=== PATIENT | male | born 1955 | race Hispanic/Latino ===

== ENCOUNTER 2022-04-10 14:25 | Emergency (ER) | payer OTHER ==
--- OUTSIDE RECORDS SUMMARY | 2022-04-10 14:28 | XMS REPORT | Continuity of Care Document ---
:1955 Author Organization [facility] t Address [facility] [place] [address] Care Team Providers Name Role Phone WOLF DREW Primary Care Physician Unavailable Wolf Drew Attending Clinician Unavailable WOLF DREW Attending Clinician Unavailable LAB90 Attending Clinician Unavailable ARBEN BAKER Attending Clinician Unavailable SAMRA SMALL Attending Clinician Unavailable Doctor Unassigned, [place] Attending Clinician Unavailable Payers Payer Name Policy Type Policy Number Effective Date Expiration Date S sergo [place] [place] O 7 [id number] 2021 00:00:00 Problems Condition Condition Condition Status Onset Resolution Last Treating Co mments Source Name Details Category Date Date Treatment Clinician Date Anxiety Anxiety Disease Active Ramya 1-13 Seybold 00:00: - 00 Externa l Seasonal Seasonal Disease Active 2021-03 Yodit y allergic allergic 0-11 Seybol d rhinitis rhinitis 00:00: - due to due to 00 Externa pollen pollen l Prediabete Prediabete Disease Active 2021-03 Overview : Ramya [place] 0-05 Formattin Seybold 00:00: g of this - 00 note Externa might be l different from the original. 01/07 A1c 5.9 Mixed Mixed Disease Active 2021-03 Ramya hyperlipid hyperlipid 0-05 Se ybold emia emia 00:00: - 00 Externa l Well adult Well adult Disease Active 2021-03 Penelope zaragoza exam exam 0-04 Seybold 00:00: - 00 Externa l Decreased Decreased Disease Active 2021-03 Yobani munoz urine urine 0-04 Seybold stream stream 00:00: - 00 Externa l No known No known Disease Unive rs active active ity of problems problems [facility] [id number] BPH loc w Problem Com mon urin [facility] obs/LUTS - [facility] [id number] PSA Problem Common elevation [facility] Allergies, Adverse Reactions, Alerts Allergy Allergy Status Severity Reaction(s) Onset Inactive Treating Comm ents Source Name Type Date Date Clinician NO KNOWN Drug Active Univers ALLERGIE Class ity of [facility] Social History Social Habit Start Date Stop Date Quantity Comments Source History of Tobacco Common [facility] - Use [facility] Sex Assigned At Common Sp javid - [facility] Alcohol intake 2022-03-31 2022-03-31 Lifetime Ramya Munoz bold - 00:00:00 00:00:00 non-drinker External (finding) Tobacco use and 2021-12-20 2021-12-20 Smokeless tobacco Ke chilo Seybold - exposure 00:00:00 00:00:00 non-user External Education 2021-12-20 2021-12-20 16 Ramyatammy Thomasold - 00:00:00 00:00:00 External Smoking Status Start Date Stop Date Source Unknown if ever smoked [facility] Never Smoker [facility] Medications Ordered Filled Start Stop Current Ordering Indication Dosage Frequency Signature Comments Components Source Medication Medication Date Date Medication? Clinician (SIG) Name Name Flomax 0.4 Flomax 0.4 2022- No 1{capsu QD Flomax 0.4 MG MG 04-06 08-17 le} MG 00:00: 00:00 00 :00 Methylpredn 2021-03- No [id number] 40mg K mila isolone 12-27 Seybold Sodium 15:15: 15:20 - (SOLU-MEDRO 00 :00 Externa L) 40 mg l Methylpredn 2021-03- No [id number] 40mg 40 mg, Ramya isolone 0-11 10-11 intramuscu Seybo ld Sodium 15:15: 15:20 lar, ONCE, - (SOLU-MEDRO 00 :00 On Tue [place] [employer] a L) 40 mg 12/27/21 l at 1015, For 1 dose Eidson-3 2021-03 Yes [id number] 1000mg Take 1 K elsey Fatty Acids 0-11 capsule Seybo ld (Fish Oil) 00:00: (1,000 mg - 1000 MG 00 total) by Externa oral mouth 2 l Capsule times daily Eidson-3 2021-03 Yes [id number] 1000mg Take 1 K elsey Fatty Acids 0-11 capsule Seybo ld (Fish Oil) 00:00: (1,000 mg - 1000 MG 00 total) by Externa oral mouth 2 l Capsule times daily No known 2021-03 No No known Kelse y medications 0-04 medication Se ybold 10:27: s - 29 Externa l isosorbide 2017-0 Yes 30mg Take 1 Unive rs mononitrate 3-29 tablet by ity of 30 mg 24 hr 00:00: mouth [place] tablet 00 daily. [facility] metoprolol Yes 25mg Take 1 Unive rs tartrate 25 3-29 tablet by ity of mg tablet 00:00: mouth 2 [place] 00 (two) Medical times Branch daily. Vital Signs Vital Name Observation Time Observation Value Comments Source temperature 2022-04-06 14:30:00 98.6 [degF] [facility] bmi 2022-04-06 14:30:00 29.1 kg/m2 [facility] oximetry 2022-04-06 14:30:00 98 % [facility] respiratory rate 2022-04-06 14:30:00 16 /min Comm on [facility] blood pressure 2022-04-06 14:30:00 139 mm[Hg] [facility] - systolic [facility] blood pressure 2022-04-06 14:30:00 68 mm[Hg] [facility] - diastolic [facility] height 2022-04-06 14:30:00 68 [in_i] [facility] weight 2022-04-06 14:30:00 191.4 [lb_av] Common [facility] Systolic blood 2022-03-31 14:13:00 138 mm[Hg] Ramya Seybold - pressure External Diastolic blood 2022-03-31 14:13:00 62 mm[Hg] Kelse y Seybold - pressure External Heart rate 2022-03-31 14:13:00 84 /min Ramya S eybold - External Body temperature 2022-03-31 14:13:00 36.28 Navya Sari ey Seybold - External Respiratory rate 2022-03-31 14:13:00 16 /min Sari ey Seybold - External Body height 2022-03-31 14:13:00 172.7 cm Ramya S eybold - External Body weight 2022-03-31 14:13:00 87.091 kg Ramya S eybold - External BMI 2022-03-31 14:13:00 29.19 kg/m2 Ramya S eybold - External Systolic blood 2021-12-27 14:46:00 112 mm[Hg] Ramya Seybold - pressure External Diastolic blood 2021-12-27 14:46:00 71 mm[Hg] Kelse y Seybold - pressure External Heart rate 2021-12-27 14:46:00 67 /min Ramya S eybold - External Body temperature 2021-12-27 14:46:00 36.56 Navya Sari ey Seybold - External Respiratory rate 2021-12-27 14:46:00 14 /min Sari ey Seybold - External Body height 2021-12-27 14:46:00 172.7 cm Ramya S eybold - External Body weight 2021-12-27 14:46:00 86.637 kg Ramya S eybold - External BMI 2021-12-27 14:46:00 29.04 kg/m2 Ramya S eybold - External Systolic blood 2021-12-20 15:23:00 115 mm[Hg] Ramya Seybold - pressure External Diastolic blood 2021-12-20 15:23:00 68 mm[Hg] Kelse y Seybold - pressure External Heart rate 2021-12-20 15:23:00 63 /min Ramya S eybold - External Body temperature 2021-12-20 15:23:00 36.67 Navya Sari Scott - External Respiratory rate 2021-12-20 15:23:00 14 /min Sari Scott - External Body height 2021-12-20 15:23:00 172.7 cm Ramya lin - External Body weight 2021-12-20 15:23:00 87 kg Ramya merlosbobabs - External BMI 2021-12-20 15:23:00 29.16 kg/m2 Ramya lin - External Oxygen saturation in 2021-12-20 15:23:00 99 /min Ramya Scott - Arterial blood by External Pulse oximetry Procedures Procedure Date / Time Performed Performing Clinician [facility] e REFERRAL- 2021-06-27 05:01:00 Doctor Unassigned, Rupali Garcia [facility] REQUEST/RESPONSE Name Medical Branch Encounters Start End Encounter Admission Attending Care Care Encounter Source Date/Time Date/Time Type Type Clinicians Facility Department ID 2022-04-[address] [id number] Common 14:11:02 Wolf [address]83[address] [facility] - [facility] 2023-01-29 2023-01-29 Outpatient RAMYA DREW [id number] Ramya 08:00:00 08:00:00 WOLF Guzmanybol karrie 2022-04-20 2022-04-20 Outpatient RAMYA DREW [id number] Ramya 14:45:00 14:45:00 WOLF Seybol d 2022-04-10 2022-04-10 Outpatient RAMYA DREW [id number] Ramya 00:00:00 00:00:00 WOLF Seybol d 2022-04-06 2022-04-06 [facility] [id number] mmon 00:00:00 00:00:00 VISIT NEW [facility] PT LEVEL 2 - [facility] 2022-04-04 2022-04-04 Outpatient RAMYA DREW [id number] Rmaya 00:00:00 00:00:00 WOLF Guzmanybol d 2022-03-31 2022-03-31 Outpatient LAB90 RAMYA SPARKS [id number] Ramya 08:35:00 08:35:00 Seybol d 2022-03-31 2022-03-31 Outpatient RAMYA DREW [id number] Ramya 08:00:00 08:00:00 WOLF Seybol d 2021-12-27 2021-12-27 Outpatient PRERAMYA BRANTLEY [id number] Ramya 09:45:00 09:45:00 WOLF Seybol d 2021-12-20 2021-12-20 Outpatient LAB90 RAMYA SPARKS [id number] Ramya 11:30:00 11:30:00 Seybol d 2021-12-20 2021-12-20 Outpatient RAMYA DREW [id number] Ramya 10:30:00 10:30:00 WOLF Seybol d 2021-12-19 2021-12-19 Outpatient BAKERRAMYA PENN [id number] Ramya 00:00:00 00:00:00 ARBEN Seybo ld 2021-12-13 2021-12-13 Outpatient RAMYA DREW [id number] Ramya 10:00:00 10:00:00 WOLF Seybol d 2021-09-08 2021-09-08 Outpatient Valeria [facility] [id number] Univers 14:30:00 14:30:00 [facility] 2021-06-27 2021-06-27 Orders Doctor FARRELL [id number] Univers 00:00:00 00:00:00 Only Unassigned, VICKY [id number] ity of [place] [facility] [id number] [place] as [phone] [address] Results Test Description Test Time Test Comments Results Result Comments Source CBC W/AUTO DIFF WITH PLATELETS 2021-06-29 02:41:03 Test Item Value Reference Range Interpretation Comme nts WBC (test code = 1001) 7.4 K/UL 3.5-11.0 RBC (test code = 1002) 4.63 M/UL 4.50-6.10 HEMOGLOBIN (test code = 13.5 G/DL 13.5-17.0 1003) HEMATOCRIT (test code = 40.1 % 40.0-51.0 1004) MCV (test code = 1005) 86.6 fL 80.0-99.0 MCH (test code = 1006) 29.2 PG 25.0-33.0 MCHC (test code = 1007) 33.7 G/DL 31.0-36.0 RDW (test code = 1038) 12.6 % 11.5-15.0 NEUTROPHILS (test code = 44.4 % 1008) LYMPHOCYTES (test code = 42.0 % 1010) MONOCYTES (test code = 1011) 8.5 % EOSINOPHILS (test code = 3.5 % 1012) BASOPHILS (test code = 1013) 1.3 % IMMATURE GRANULOCYTES (test 0.3 % code = 1036) NUCLEATED RBCS (test code = 0.0 /100 WBC'S See_Comment [Automated message] The 1065) system which ge nerated this result transmit joseline reference range: 0.0. The reference range was not u sed to interpret this result as normal/abnormal . PLATELET COUNT (test code = 252 K/UL 654-834 1768) ABSOLUTE NEUTROPHILS (test 3.29 K/UL 1.50-7.50 code = 1066) ABSOLUTE LYMPHOCYTES (test 3.11 K/UL 1.00-4.00 code = 1067) ABSOLUTE MONOCYTES (test 0.63 K/UL 0.20-1.00 code = 1068) ABSOLUTE EOSINOPHILS (test 0.26 K/UL 0.00-0.50 code = 1040) ABSOLUTE BASOPHILS (test 0.10 K/UL 0.00-0.20 code = 1069) ABS IMMATURE GRANULOCYTES 0.02 K/UL 0.00-0.10 (test code = 1020) ABS NUCLEATED RBCS (test 0.00 K/UL 0.00-0.11 U NLESS OTHERWISE code = 01346) INDICATED, ALL TESTING PERFORMED [facility] [address] [place] [id number] LABORATOR Y DIRECTOR: Richie IVYIA NUMBER [id number] CAP ACCREDITATION N O. [id number] HIV 1/2 4TH GEN, RFLX [id number] 06:06:18 Test Item Value Reference Range Interpretation Comments HIV 1/2 4TH GEN, RFLX CONF (test NON-REACTIVE NON-REACTIVE code = 3514) HEPATITIS PANEL, [id number] 06:06:18 Test Item Value Reference Range Interpretation Comments HEPATITIS A IgM (test NON-REACTIVE NON-REACTIVE code = 60485) HEPATITIS B CORE IgM NON-REACTIVE NON-REACTIVE (test code = 4644) HEPATITIS B SURF AG NON-REACTIVE NON-REACTIVE (test code = 2739) HEPATITIS C ANTIBODY NON-REACTIVE NON-REACTIVE (test code = 4675) INTERPRETATION (NOTE) Hepatitis A HEPATITIS A: (test code sero logy shows no = 2552) evidence of acu te hepatitis A. INTERPRETATION (NOTE) Hepatitis B HEPATITIS B: (test code sero logy shows no = 82565) evidence of acu te hepatitis B and no indication of exposure to hepatitis B vir us in the previous tao eight months. INTERPRETATION (NOTE) Hepatitis C HEPATITIS C: (test code sero logy shows no = 03291) evidence of exposure to hepatitisC viru s at this time. I t can take up to 12 months after exposure tothe hepatitis C vir us for antibodies to become detectab le in the blood in certain patient s. PSA, [id number] 06:05:56 Test Item Value Reference Range Interpretation Comments PSA, TOTAL 4.46 NG/ML See_Comment H NOTE: Methodol ogy is Nadine (test code = Danette Electroch emiluminescence 2606) Immunoassay tra ceable to WHO reference stand eloina 96/760. UNLESS OTHERWIS E INDICATED, ALL TESTING PERFORM ED ATCLINICAL PATHOLOGY [facility]. [address] [place] [address] LABORATORY DIRE CTOR: ANJEL RAMIREZ M.D. CLIA NUMBER [id number] [place]. [id number] [A utomated message] The sy stem which generated this result transmitted ref erence range: <=4.00. The ref erence range was not used to int erpret this result as amberly l/abnormal. COMPREHENSIVE METABOLIC [id number] 04:26:01 Test Item Value Reference Range Interpretation Comments GLUCOSE (test code = 104 MG/DL 70-99 H 2216) BUN (test code = 10 MG/DL 8-2207) CREATININE (test 0.88 MG/DL 0.80-1.40 code = 2214) eGFR (2020 CKD-EPI) 96 ML/MIN/1.73 >60 (test code = 97359) CALC BUN/CREAT (test 11 RATIO 6-28 code = 2235) SODIUM (test code = 140 MEQ/L 259-932 9049) POTASSIUM (test code 4.3 MEQ/L 3.5-5.4 = 2227) CHLORIDE (test code 103 MEQ/L 95-107 = 2214) CARBON DIOXIDE (test 25 MEQ/L 19-31 code = 220) CALCIUM (test code = 10.1 MG/DL 8.5-10.5 2208) PROTEIN, TOTAL (test 7.1 G/DL 6.1-8.3 code = 2228) ALBUMIN (test code = 4.7 G/DL 3.5-5.2 2200) CALC GLOBULIN (test 2.4 G/DL 1.9-3.7 code = 2239) CALC A/G RATIO (test 2.0 RATIO 1.0-2.6 code = 2233) BILIRUBIN, TOTAL 0.6 MG/DL See_Comment [Automated message] (test code = 2206) The syste [employer] which generated this result transmit joseline reference range : <=1.2. The refe rence range was not u sed to interpret th is result as normal/abnormal . ALKALINE PHOSPHATASE 87 U/L 40-123 (test code = 2203) AST (test code = 17 U/L 9-50 2217) ALT (test code = 23 U/L 5-50 2218) LIPID [id number] 04:26:01 Test Item Value Reference Range Interpretation Comments CHOLESTEROL (test 195 MG/DL <200 code = 2210) TRIGLYCERIDES (test 104 MG/DL <150 code = 2232) HDL CHOLESTEROL (test 50 MG/DL >39 code = 2220) CALC LDL CHOL (test 124 MG/DL <100 H NOTE: C ALCULATED LDL code = 2237) IS BASED ON CRISTOPHER-CONNOR METHOD WHICHINCLUDES ADJUSTABLE TRIGLYCERIDE:VL DL CHOLESTEROL RAT IO.THIS FACTOR VARIES B Y MEASURED TRIGLY CERIDE AND NON-HDLCHOL ESTEROL CONCENTRATIONS WITH INCREASED CALCU LATED LDL SEENIN HIGH ER TRIGLYCERIDE OR LOWER NON-HDL SPECIME NS. FOR MOREINFORMATION , SEE CLIENT ANNOUNCE MENT AT [email or web address] [email or web address] LDL/HDL 2.48 RATIO <3.55 (test code = 2238) CBC W/AUTO DIFF WITH [id number] 02:48:43 Test Item Value Reference Range Interpretation Comments WBC (test code = 12.3 K/UL 3.5-11.0 H 1001) RBC (test code = 4.74 M/UL 4.50-6.10 1002) HEMOGLOBIN (test code 14.4 G/DL 13.5-17.0 = 1003) HEMATOCRIT (test code 41.1 % 40.0-51.0 = 1004) MCV (test code = 86.7 fL 80.0-99.0 1005) MCH (test code = 30.4 PG 25.0-33.0 1006) MCHC (test code = 35.0 G/DL 31.0-36.0 1007) RDW (test code = 12.0 % 11.5-15.0 1038) NEUTROPHILS (test 72.3 % code = 1008) LYMPHOCYTES (test 16.8 % code = 1010) MONOCYTES (test code 8.4 % = 1011) EOSINOPHILS (test 1.6 % code = 1012) BASOPHILS (test code 0.6 % = 1013) IMMATURE GRANULOCYTES 0.3 % (test code = 1036) NUCLEATED RBCS (test 0.0 /100 WBC'S See_Comment [Aut omated code = 1065) message] The sy stem which generated this result transmitted reference range : 0.0. The refere nce range was not u sed to interpret th is result as normal/abnormal . PLATELET COUNT (test 263 K/UL 130-400 code = 1015) ABSOLUTE NEUTROPHILS 8.91 K/UL 1.50-7.50 H (test code = 1066) ABSOLUTE LYMPHOCYTES 2.07 K/UL 1.00-4.00 (test code = 1067) ABSOLUTE MONOCYTES 1.04 K/UL 0.20-1.00 H (test code = 1068) ABSOLUTE EOSINOPHILS 0.20 K/UL 0.00-0.50 (test code = 1040) ABSOLUTE BASOPHILS 0.08 K/UL 0.00-0.20 (test code = 1069) ABS IMMATURE 0.04 K/UL 0.00-0.10 GRANULOCYTES (test code = 1020) ABS NUCLEATED RBCS 0.00 K/UL 0.00-0.11 (test code = 57750)
[2022-04-10] MEDS ORDERED: ASPIRIN 81 MG CHEWABLE TABLET ONE (15:05)
[2022-04-10 15:19] LABS: Absolute Lymphocytes (CBC) 2.5 K/uL (0.7-4.9); Hematocrit 40.8 % (39.6-49.0); MCV 87.7 fL (80-100); MPV 8.9 fL (7.6-11.3); RBC Red Blood Cell Count 4.65 M/uL (4.33-5.43)
[2022-04-10 15:40] LABS: Troponin High Sensitivity 5.8 pg/mL (<58.9)
--- NOTE | 2022-04-10 15:59 | RAD REPORT ---
EXAM DESCRIPTION: RAD - Chest Single View - 04/10/2022 3:44 pm CLINICAL HISTORY: COUGH COMPARISON: None TECHNIQUE: AP portable chest image was obtained 04/10/2022 3:44 pm . FINDINGS: Lungs are clear of peripheral mass or consolidation. Interstitial pattern is mildly promin ent. This is probably baseline. Minimal interstitial edema or infiltrate cannot be entirely excluded on this baseline study. Heart and vasculature are normal. No measurable pleural effusion and no pneumothorax. No acute bony a bnormality seen. No acute aortic findings suspected. IMPRESSION: No acute cardiopulmonary process.
--- NOTE | 2022-04-10 16:46 | EDPHYS ---
Physician Documentation [facility] Name: Ty Renae Age: 66 yrs Sex: Male : 1955 Arrival Date: 04/10/2022 Time: 14:28 Bed 19 Private MD: Dayne Drew ED Physician Aki Escalona HPI: 04/10 14:36 This 66 yrs old Male presents to ER via Ambulatory with complaints of Chest ms3 Pain. 14:36 66-year-old male with no past medical history presents for chest pain that began ms3 Sunday. Patient states he is not currently having pain. Patient states he did have some pain last night. Patient denies nausea, vomiting, shortness of breath. Patient denies inciting or alleviating factors. Patient states he called his primary care physician's office, Dr. Drew, and was referred to the emergency department.. Historical: - Allergies: 14:34 No Known Allergies; ss - Immunization history:: Adult Immunizations up to date. - Social history:: Smoking status: Patient denies any tobacco usage or history of. ROS: 14:38 Constitutional: Negative for fever, and chills. ENT: Negative for injury, pain, and ms3 discharge, Neck: Negative for injury, pain, and swelling. 14:38 Respiratory: Negative for shortness of breath, cough, wheezing, and pleuritic chest pain, Abdomen/GI: Negative for abdominal pain, nausea, vomiting, diarrhea, and constipation, MS/Extremity: Negative for injury and deformity, Skin: Negative for injury, rash, and discoloration. 14:38 Cardiovascular: Positive for chest pain. 14:38 All other systems are negative. Exam: 14:38 Constitutional: This is a well developed, well nourished patient who is awake, alert, ms3 and in no acute distress. Head/Face: Normocephalic, atraumatic. Neck: Trachea midline, no cervical lymphadenopathy. Supple, full range of motion without nuchal rigidity, or vertebral point tenderness. No Meningismus. Chest/axilla: Normal chest wall appearance and motion. Nontender with no deformity. Cardiovascular: Regular rate and rhythm with a normal S1 and S2. No gallops, murmurs, or rubs. Normal PMI, no JVD. No pulse deficits. Respiratory: Lungs have equal breath sounds bilaterally, clear to auscultation and percussion. No rales, rhonchi or wheezes noted. No increased work of breathing, no retractions or nasal flaring. Abdomen/GI: Soft, non-tender, with normal bowel sounds. No distension or tympany. No guarding or rebound. No evidence of tenderness throughout. Skin: Warm, dry with normal turgor. Normal color with no rashes, no lesions, and no evidence of cellulitis. MS/ Extremity: Pulses equal, no cyanosis. Neurovascular intact. Full, normal range of motion. Psych: Awake, alert, with orientation to person, place and time. Behavior, mood, and affect are within normal limits. 15:19 ECG was reviewed by the Attending Physician. ms3 Vital Signs: 14:34 Pulse 71; Resp 16; Temp 16; Pulse Ox 100% ; ss 14:36 BP 151 / 78; Weight 88.45 kg; Height 5 ft. 8 in. (172.72 cm); iw 15:48 BP 132 / 73; Pulse 65; Resp 18; Pulse Ox 99% ; jh5 16:44 BP 130 / 67; Pulse 72; Resp 18; Temp 98.7(O); Pulse Ox 100% ; jh5 14:36 Body Mass Index 29.65 (88.45 kg, 172.72 cm) iw MDM: 14:36 Patient medically screened. ms3 14:38 Differential diagnosis: abnormal EKG, acute myocardial infarction, coronary artery ms3 disease chest wall pain, pneumonia. 16:45 HEART Score: History: Slightly Suspicious (0), ECG: Normal (0), Age: > or = 65 years ms3 (2), Risk Factors: No Risk Factors Known (0), Troponin: < or = 1 x Normal Limit (0), Total Score = 2. The patient was given aspirin in the Emergency Department. Data reviewed: vital signs, nurses notes, lab test result(s), EKG, radiologic studies, and as a result, I will discharge patient. Consideration of Admission/Observation No emergent medical condition necessitating admission found at this time. I considered the following discharge prescriptions or medication management in the emergency department Medications were administered in the Emergency Department. See MAR. 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 Counseling: I had a detailed discussion with the patient and/or guardian regarding: the historical points, exam findings, and any diagnostic results supporting the discharge/admit diagnosis, lab results, radiology results, the need for outpatient follow up, to return to the emergency department if symptoms worsen or persist or if there are any questions or concerns that arise at home. ED course: On reevaluation patient is alert and oriented x4, no apparent distress, nontoxic, ambulatory in emergency department, speaking full sentences. Patient to follow-up with his primary care physician in 2 to 3 days. Patient understands and agrees with plan. All questions were answered. Return precautions discussed include worsening symptoms, or any other concerns.. 04/10 14:59 Order name: Basic Metabolic Panel; Complete Time: 16:34 ms3 04/10 14:59 Order name: CBC with Diff; Complete Time: 16:34 3 04/10 14:59 Order name: Troponin HS; Complete Time: 16:34 ms3 04/10 14:59 Order name: XRAY Chest (1 view); Complete Time: 16:34 ms3 04/10 14:59 Order name: EKG; Complete Time: 14:59 ms3 04/10 14:59 Order name: Cardiac monitoring; Complete Time: 14:59 3 04/10 14:59 Order name: EKG - Nurse/Tech; Complete Time: 15:18 3 04/10 14:59 Order name: IV Saline Lock; Complete Time: 15:13 3 04/10 14:59 Order name: Labs collected and sent; Complete Time: 15:13 3 04/10 14:59 Order name: O2 Per Protocol; Complete Time: 14:59 ms3 04/10 14:59 Order name: O2 Sat Monitoring; Complete Time: 14:59 ms3 EC:19 Rate is 61 beats/min. Rhythm is regular. QRS [place] is Normal. OR interval is normal. QRS ms3 interval is normal. Clinical impression: Normal ECG. Interpreted by me. Reviewed by me. Administered Medications: 15:04 Drug: Aspirin Chewable Tablet 324 mg Route: PO; jh5 Disposition Summary: 04/10/22 16:45 Discharge Ordered Location: Home ms3 Condition: Stable ms3 Diagnosis - Chest pain, unspecified ms3 Followup: ms3 - With: Dayne Drew DO - When: 2 - 3 days - Reason: Recheck today's complaints Discharge Instructions: - Discharge Summary Sheet ms3 - Nonspecific Chest Pain, Adult ms3 Forms: - Medication Reconciliation Form ms3 - Thank You Letter ms3 - Antibiotic Education ms3 - Prescription Opioid Use ms3 Signatures: Dispatcher [employer] Livia Matthews RN RN ss Aki Escalona DO DO ms3 Yulisa Bond, RN RN jh5
--- NOTE | 2022-04-10 16:46 | ER ---
Nurse's Notes [facility] Name: Ty Renae Age: 66 yrs Sex: Male : 1955 Arrival Date: 04/10/2022 Time: 14:28 Bed 19 Private MD: Dayne Drew Diagnosis: Chest pain, unspecified Presentation: 04/10 14:34 Chief complaint: Patient states: Intermittent chest pain that began Sunday. ss Coronavirus screen: Client denies travel out of the [place] in the last 14 days. Ebola Screen: Patient denies exposure to infectious person. Patient denies travel to an Ebola-affected area in the 21 days before illness onset. Initial Sepsis Screen: Does the patient meet any 2 criteria? No. Patient's initial sepsis screen is negative. Does the patient have a suspected source of infection? No. Patient's initial sepsis screen is negative. Risk Assessment: Do you want to hurt yourself or someone else? Patient reports no desire to harm self or others. Onset of symptoms was April 07, 2021. 14:34 Method Of Arrival: Ambulatory 14:34 Acuity: JESSICA 3 Triage Assessment: 15:14 General: Appears in no apparent distress. slender, well groomed, well developed, [facility] Behavior is calm, cooperative, appropriate for age. Cardiovascular: Reports chest pain. Historical: - Allergies: 14:34 No Known Allergies; ss - Immunization history:: Adult Immunizations up to date. - Social history:: Smoking status: Patient denies any tobacco usage or history of. Screenin:14 [facility] ED Fall Risk Assessment (Adult) History of falling in the last 3 months, [facility] including since admission No falls in past 3 months (0 pts) Confusion or Disorientation No (0 pts) Intoxicated or Sedated No (0 pts) Impaired Gait No (0 pts) Mobility Assist Device Used No (0 pt) Altered Elimination No (0 pt) Score/Fall Risk Level 0 - 2 = Low Risk. Abuse screen: Denies threats or abuse. Denies injuries from another. Nutritional screening: No deficits noted. Tuberculosis screening: No symptoms or risk factors identified. Assessment: 15:15 Pain: Pain does not radiate. Pain began gradually. [facility] Vital Signs: 14:34 Pulse 71; Resp 16; Temp 16; Pulse Ox 100% ; ss 14:36 BP 151 / 78; Weight 88.45 kg; Height 5 ft. 8 in. (172.72 cm); iw 15:48 BP 132 / 73; Pulse 65; Resp 18; Pulse Ox 99% ; jh5 16:44 BP 130 / 67; Pulse 72; Resp 18; Temp 98.7(O); Pulse Ox 100% ; jh5 14:36 Body Mass Index 29.65 (88.45 kg, 172.72 cm) ED Course: 14:28 Patient arrived in ED. mr 14:28 Dayne Drew DO is Private Physician. mr 14:31 Aki Escalona DO is Attending Physician. ms3 14:34 Triage completed. ss 14:34 Arm band placed on right wrist. ss 15:14 Client placed on continuous cardiac and pulse oximetry monitoring. NIBP monitoring jh5 applied. 15:14 Inserted saline lock: 20 gauge in right antecubital area, using aseptic technique. jh5 Patient maintains SpO2 saturation greater than 95% on room air. 15:15 Patient has correct armband on for positive identification. Bed in low position. Call jh5 light in reach. Side rails up X 1. 15:15 No provider procedures requiring assistance completed. jh5 15:46 XRAY Chest (1 view) In Process Unspecified. EDMS 16:45 Dayne Drew DO is Referral Physician. ms3 16:58 IV discontinued, intact, bleeding controlled, No redness/swelling at site. Pressure jh5 dressing applied. Administered Medications: 15:04 Drug: Aspirin Chewable Tablet 324 mg Route: PO; 5 Medication: 15:15 VIS not applicable for this client. jh5 Outcome: 16:45 Discharge ordered by . ms3 16:58 Discharged to home ambulatory. jh5 16:58 Condition: good 16:58 Discharge instructions given to patient, Instructed on discharge instructions, follow up and referral plans. medication usage, safety practices, Demonstrated understanding of instructions, follow-up care, medications. 16:58 Patient left the ED. 5 Signatures: Dispatcher [employer] [facility] Gisselle Fernandez Henrietta Ramon RN RN Livia Carmona RN RN Aki Escalona DO DO ms3 Yulisa Bond RN RN 5
[2022-04-10 17:57] VITALS: BP 130/67; TEMP 98.7; O2SAT 100
--- NOTE | 2022-04-11 12:27 | EKG ---
Test Date: 2022-04-10 Test Time: 15:19:09 Nuclear Pharmacist: YASIR MEASUREMENT RESULTS: Intervals: Rate: 61 TX: 170 QRSD: 80 QT: 420 QTc: 422 [place]: P: 36 TX: 170 QRS: 2 T: 55 INTERPRETIVE STATEMENTS: Normal sinus rhythm Normal ECG No previous ECG available for comparison Electronically Signed On 04-11-22 12:25:06 PEDIATRIC ANESTHESIOLOGIST by aGutam Cardona
== END 2022-04-10 16:58 | disposition home or self-care (01) ==
LOC: ER 14:25
DX: R07.89 Other chest pain (principal)
CPT/HCPCS: 36415; 71045; 80048; 84484; 85025; 93005; 99284

== ENCOUNTER 2024-05-03 16:11 | Emergency (ER) | payer OTHER ==
--- OUTSIDE RECORDS SUMMARY | 2024-05-03 16:15 | XMS REPORT | Continuity of Care Document ---
Author Name Unknown Address [address] [place] [address] [facility] thconnect Address 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 [id number] 2021 00:00:00 Problems Condition Name Condition Details Condition Category Status Onset Date Resolution Date Last Treatment Date Treating Clinician Comments Source Overweight (BMI 25.0-29.9) Overweight (BMI 25.0-29.9) Disease Active 11-19 00:00: 00 Ramya Scott - Externa martin BPH (benign prostatic hyperplasi a) BPH (benign prostatic hyperplasi a) Disease Active 05-17 00:00: 00 Ramya Cisse Externa martin Chest pain, musculoske letal Chest pain, musculoske letal Disease Active 2-02 00:00: 00 Ramya Seybold - Externa l 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 01/07 A1c 5.9 Ramya Seybold - Externa l Mixed hyperlipid emia Mixed hyperlipid emia Disease Active 2021-03 0-05 00:00: 00 Ramya Seybold - Externa l Well adult exam Well adult exam Disease Active 2021-03 0-04 00:00: 00 Rmaya Seybold - Externa l Decreased urine stream Decreased urine stream Disease Active 2021-03 0-04 00:00: 00 Ramya Seybold - Externa l Cataract Cataract Disease Active Kelse y Seybold - Externa l Dry eye Dry eye Disease Active Ramya Seybold - Externa l Presbyopia of both eyes Presbyopia of both eyes Disease Active Ramya Seybold - Externa l No known active problems No known active problems Disease [facility] [id number] ED (erectile dysfunctio n) of organic origin Problem [facility] [id number] BPH loc w urin obs/LUTS Problem [facility] [id number] PSA elevation Problem [facility] Allergies, Adverse Reactions, Alerts Allergy Name Allergy Type Status Severity Reaction(s) Onset Date Inactive Date Treating Clinician Comments Source NO KNOWN ALLERGIE S Drug Class Active [facility] Social History Social Habit Start Date Stop Date Quantity Comments Source Gender identity Sari ey Seybold - External Sexual orientation K elsey Seybold - External History of Tobacco Use [facility] Sex Assigned At [facility] Alcoholic beverage intake 2023-11-20 00:00:00 2023-11-20 00:00:00 Lifetime non-drinker (finding) Ramya Williamkimberlyn - External Alcohol intake 2023-05-25 00:00:00 2023-05-25 00:00:00 Lifetime non-drinker (finding) Ramya Scott - External History of Social function 2022-12-04 00:00:00 2022-12-04 00:00:00 Ramya Scott - External Tobacco use and exposure 2021-12-20 00:00:00 2021-12-20 00:00:00 Smokeless tobacco non-user Ramya Scott - External Education 2021-12-20 00:00:00 2021-12-20 00:00:00 16 Ramya Scott - External Smoking Status Start Date Stop Date Source Unknown if ever smoked [facility] Never smoked tobacco Ramya Scott - External Medications Ordered Medication Name Filled Medication Name Start Date Stop Date Current Medication? Ordering Clinician Indication Dosage Frequency Signature (SIG) Comments Components Source POTASSIUM CITRATE OR 11-19 08:08: 43 Yes 1{tbl} Q.[id number] 3D Take 1 tablet by mouth 3 times daily. Ramya salazar Magnesium Citrate does not apply Powder 11-19 08:08: 02 Yes 1{appli cation} Q.[id number] 3D Take 1 Applicatio n by mouth 3 times daily. Ramya salazar Our[place]-3 Fatty Acids (Fish Oil) 1000 MG oral Capsule 05-17 00:00: 00 Yes [id number] 1000mg Q.5D Take 1 capsule (1,000 mg total) by mouth 2 times daily. Ramya salazar Tamsulosin HCl 0.4 MG oral Capsule 05-17 00:00: 00 11-19 00:00 :00 No [id number] .4mg Take 1 capsule (0.4 mg total) by mouth every night at bedtime. Ramya salazar Sildenafil Citrate (Viagra) 50 MG oral Tablet 05-17 00:00: 00 11-19 00:00 :00 No [id number] 50mg QD Take 1 tablet (50 mg total) by mouth daily as needed. Ramya salazar FLUTICASONE PROPIONATE, NASAL, 50 MCG/ACT nasal Suspension 2022-03 0-30 00:00: 00 05-17 00:00 :00 No [id number] 50ug Use 1 spray (50 mcg total) in each nostril daily. Ramya salazar Triamcinolo ne Acetonide (KENALOG) 40 mg/mL 2022-03 0 14:00: 00 01-12 13:57 :00 No [id number] 40mg Ramya salazar FLUTICASONE PROPIONATE, NASAL, 50 MCG/ACT nasal Suspension 2022-03 00:00: 00 Yes [id number] 50ug Use 1 spray (50 mcg total) in each nostril daily. Ramya salazar Tamsulosin HCl 0.4 MG oral Capsule 2022-03 0-13 00:00: 00 Yes Ramya salazar SILDENAFIL 50MG 9-19 00:00: 00 Yes Benitez Mcqueen Sildenafil Citrate (Viagra) 50 MG oral Tablet 8-21 00:00: 00 Yes [id number] 50mg QD Take 1 tablet (50 mg total) by mouth daily as needed. Ramya salazar TAKE 1 TABLET BY MOUTH DAILY NEEDED. 8-21 00:00: 00 Yes 50 Benitez Mcqueen SILDENAFIL 25MG 5-07 00:00: 00 Yes [id number] Benitez Mcqueen Tadalafil 20 MG Tadalafil 20 MG 3-16 00:00: 00 No Tadalafil 20 MG TAKE 1 CAPSULE BY MOUTH EVERY DAY FOR 90 DAYS 3-16 00:00: 00 Yes Benitez Mcqueen SILDENAFIL 25MG 2-03 00:00: 00 Yes Benitez Mcqueen Sildenafil Citrate (Viagra) 25 MG oral Tablet 2-02 00:00: 00 Yes [id number] 25mg QD Take 1 tablet (25 mg total) by mouth daily as needed for erectile dysfunctio n Ramya Seybold - Externa l TAKE 1 TABLET BY MOUTH DAILY NEEDED FOR ERECTILE DYSFUNCTION . 2 00:00: 00 Yes Benitez Mcqueen TAKE 1 CAPSULE BY MOUTH EVERY DAY 04-07 00:00: 00 Yes Benitez Mcqueen Flomax 0.4 MG Flomax 0.4 MG 04-06 00:00: 00 No 1{capsu le} QD Flomax 0.4 MG TAKE 1 CAPSULE BY MOUTH EVERY DAY 04-06 00:00: 00 Yes Benitez Mcqueen Flomax 0.4 MG Flomax 0.4 MG 04-06 00:00: 00 11-02 00:00 :00 No 1{capsu le} QD Flomax 0.4 MG Methylpredn isolone Sodium (SOLU-MEDRO L) 40 mg 2021-03 15:15: 00 12-27 15:20 :00 No [id number] 40mg Ramya Thomasold - Externa l [place]ay-3 Fatty Acids (Fish Oil) 1000 MG oral Capsule 2021-03 00:00: 00 Yes [id number] 1000mg Take 1 capsule (1,000 mg total) by mouth 2 times daily Ramya Seybold - Externa l No known medications 2021-03 004 10:27: 29 No No known medication s Ramya Seybold - Externa l Dose Unknown 06-13 00:00: 00 Yes Benitez Mcqueen Dose Unknown 06-13 00:00: 00 Yes Benitez Mcqueen Dose Unknown 06-13 00:00: 00 Yes Benitez Mcqueen Dose Unknown 06-27 00:00: 00 Yes Benitez Mcqueen Dose Unknown 06-27 00:00: 00 Yes Benitez Mcqueen Dose Unknown 06-27 00:00: 00 Yes Benitez Mcqueen isosorbide mononitrate 30 mg 24 hr tablet 06-14 00:00: 00 Yes 30mg Take 1 tablet by mouth daily. [facility] metoprolol tartrate 25 mg tablet 06-14 00:00: 00 Yes 25mg Take 1 tablet by mouth 2 (two) times daily. [facility] Immunizations Ordered Immunization Name Filled Immunization Name Date Status Comments Source Tdap Tdap 2021-06-13 00:00:00 Completed Benitez Mcqueen SHINGRIX VACCINE SHINGRIX VACCINE 2021-06-13 00:00:00 Completed Benitez Mcqueen Vital Signs Vital Name Observation Time Observation Value Comments Mello trotter Systolic blood pressure 2023-11-20 12:57:00 142 mm[Hg] Ramya Seybo ld - External Diastolic blood pressure 2023-11-20 12:57:00 74 mm[Hg] Ramya Seybo ld - External Heart rate 2023-11-20 12:57:00 66 /min Kelse y Seybold - External Body temperature 2023-11-20 12:57:00 35.89 Navya Ramya Seybold - External Respiratory rate 2023-11-20 12:57:00 15 /min Ramya Seybold - External Body height 2023-11-20 12:57:00 172.7 cm Sari ey Seybold - External Body weight 2023-11-20 12:57:00 86.183 kg Sari ey Seybold - External BMI 2023-11-20 12:57:00 28.89 kg/m2 Sari ey Seybold - External Systolic blood pressure 2023-05-18 16:13:00 130 mm[Hg] Ramya Seybo ld - External Diastolic blood pressure 2023-05-18 16:13:00 62 mm[Hg] Ramya Seybo ld - External Heart rate 2023-05-18 16:13:00 72 /min Kelse y Seybold - External Body temperature 2023-05-18 16:13:00 36.33 Navya Ramya Seybold - External Respiratory rate 2023-05-18 16:13:00 20 /min Ramya Seybold - External Body height 2023-05-18 16:13:00 172.7 cm Sari ey Seybold - External Body weight 2023-05-18 16:13:00 86.637 kg Sari ey Seybold - External BMI 2023-05-18 16:13:00 29.04 kg/m2 Sari ey Seybold - External Oxygen saturation in Arterial blood by Pulse oximetry 2023-05-18 16:13:00 100 /min Ramya Seybo ld - External Systolic blood pressure 2023-01-12 13:41:00 135 mm[Hg] Ramya Guzmanybo ld - External Diastolic blood pressure 2023-01-12 13:41:00 73 mm[Hg] Ramya Guzmanybo ld - External Body temperature 2023-01-12 13:41:00 37.06 Navya Ramya Guzmanybold - External Respiratory rate 2023-01-12 13:41:00 15 /min Ramya Seybold - External Body height 2023-01-12 13:41:00 172.7 cm Sari ey Seybold - External Body weight 2023-01-12 13:41:00 86.183 kg Sari ey Seybold - External BMI 2023-01-12 13:41:00 28.89 kg/m2 Sari ey Seybold - External Oxygen saturation in Arterial blood by Pulse oximetry 2023-01-12 13:41:00 99 /min Ramya Guzmanybo ld - External Systolic blood pressure 2022-11-06 15:26:00 133 mm[Hg] Ramya Guzmanybo ld - External Diastolic blood pressure 2022-11-06 15:26:00 82 mm[Hg] Ramya Guzmanybo ld - External Heart rate 2022-11-06 15:26:00 65 /min Yodit Thomasold - External Body temperature 2022-11-06 15:26:00 36.61 Navya Ramya Guzmanybold - External Respiratory rate 2022-11-06 15:26:00 15 /min Ramya Guzmanybold - External Body height 2022-11-06 15:26:00 172.7 cm Sari ey Seybold - External Body weight 2022-11-06 15:26:00 89.812 kg Sari ey Seybold - External BMI 2022-11-06 15:26:00 30.11 kg/m2 Sari ey Seybold - External Oxygen saturation in Arterial blood by Pulse oximetry 2022-11-06 15:26:00 99 /min Ramya Thomaso ld - External height 2022-06-01 14:15:00 68 [in_i] [facility]mo [facility] weight 2022-06-01 14:15:00 191.8 [lb_av] Co mmon [facility] temperature 2022-06-01 14:15:00 98.3 [degF] Com mon [facility] bmi 2022-06-01 14:15:00 29.16 kg/m2 Comm on [facility] oximetry 2022-06-01 14:15:00 98 % Commo n [facility] respiratory rate 2022-06-01 14:15:00 18 /min Common [facility] blood pressure systolic 2022-06-01 14:15:00 137 mm[Hg] Common [facility] blood pressure diastolic 2022-06-01 14:15:00 77 mm[Hg] [facility] Systolic blood pressure 2022-04-20 20:30:00 132 mm[Hg] Ramya Seybo ld - External Diastolic blood pressure 2022-04-20 20:30:00 71 mm[Hg] Ramya Seybo ld - External Heart rate 2022-04-20 20:30:00 69 /min Kelse y Seybold - External Body temperature 2022-04-20 20:30:00 36.61 Navya Ramya Seybold - External Respiratory rate 2022-04-20 20:30:00 14 /min Ramya Guzmanybold - External Body height 2022-04-20 20:30:00 172.7 cm Sari ey Seybold - External Body weight 2022-04-20 20:30:00 88.905 kg Sari ey Seybold - External BMI 2022-04-20 20:30:00 29.80 kg/m2 Sari ey Seybold - External Oxygen saturation in Arterial blood by Pulse oximetry 2022-04-20 20:30:00 99 /min Ramya Seybo ld - External height 2022-04-06 14:30:00 68 [in_i] Commo n [facility] weight 2022-04-06 14:30:00 191.4 [lb_av] Co mmon [facility] temperature 2022-04-06 14:30:00 98.6 [degF] Com mon [facility] bmi 2022-04-06 14:30:00 29.1 kg/m2 Commo n [facility] oximetry 2022-04-06 14:30:00 98 % Commo n [facility] respiratory rate 2022-04-06 14:30:00 16 /min Common [facility] blood pressure systolic 2022-04-06 14:30:00 139 mm[Hg] [facility] blood pressure diastolic 2022-04-06 14:30:00 68 mm[Hg] [facility] Systolic blood pressure 2022-03-31 14:13:00 138 mm[Hg] Ramya Seybo ld - External Diastolic blood pressure 2022-03-31 14:13:00 62 mm[Hg] Armya Seybo ld - External Heart rate 2022-03-31 14:13:00 84 /min Kelse y Seybold - External Body temperature 2022-03-31 14:13:00 36.28 Navya Ramya Seybold - External Respiratory rate 2022-03-31 14:13:00 16 /min Ramya Seybold - External Body height 2022-03-31 14:13:00 172.7 cm Sari ey Seybold - External Body weight 2022-03-31 14:13:00 87.091 kg Sari ey Seybold - External BMI 2022-03-31 14:13:00 29.19 kg/m2 Sari ey Seybold - External Systolic blood pressure 2021-12-27 14:46:00 112 mm[Hg] Ramya Seybo ld - External Diastolic blood pressure 2021-12-27 14:46:00 71 mm[Hg] Ramya Seybo ld - External Heart rate 2021-12-27 14:46:00 67 /min Kelse y Seybold - External Body temperature 2021-12-27 14:46:00 36.56 Navya Ramya Seybold - External Respiratory rate 2021-12-27 14:46:00 14 /min Ramya Seybold - External Body height 2021-12-27 14:46:00 172.7 cm Sari ey Seybold - External Body weight 2021-12-27 14:46:00 86.637 kg Sari ey Seybold - External BMI 2021-12-27 14:46:00 29.04 kg/m2 Sari merlos Seybold - External Systolic blood pressure 2021-12-20 15:23:00 115 mm[Hg] Ramya Seybo ld - External Diastolic blood pressure 2021-12-20 15:23:00 68 mm[Hg] Ramya Guzmanybo ld - External Heart rate 2021-12-20 15:23:00 63 /min Yodit y Seybold - External Body temperature 2021-12-20 15:23:00 36.67 Navya Ramya Guzmanybold - External Respiratory rate 2021-12-20 15:23:00 14 /min Ramya Guzmanybold - External Body height 2021-12-20 15:23:00 172.7 cm Sari merlos Seybold - External Body weight 2021-12-20 15:23:00 87 kg Sari merlos Seybold - External BMI 2021-12-20 15:23:00 29.16 kg/m2 Sari merlos Seybold - External Oxygen saturation in Arterial blood by Pulse oximetry 2021-12-20 15:23:00 99 /min Ramya Thomaso ld - External BP Systolic 2023 15:09:00 146 mm[Hg] Step hen F Richar BP Diastolic 2023 15:09:00 81 mm[Hg] Fredi phen F Richar Weight Measured 2023 15:09:00 193.80 pounds Benitez F Richar Height Measured 2023 15:09:00 68.00 inches Benitez F Richar Body Temperature 2023 15:09:00 98.30 degrees Benitez F Richar Heart Rate 2023 15:09:00 71.00 /min Saida en F Richar Respiratory Rate 2023 15:09:00 19.00 /min Benitez F Richar BP Systolic 2021-06-13 15:46:00 151 mm[Hg] Step hen F Richar BP Diastolic 2021-06-13 15:46:00 80 mm[Hg] Fredi phen F Richar Weight Measured 2021-06-13 15:46:00 199.00 pounds Benitez F Richar Height Measured 2021-06-13 15:46:00 68.00 inches Benitez Mcqueen Body Temperature 2021-06-13 15:46:00 97.90 degrees Benitez Mcqueen Heart Rate 2021-06-13 15:46:00 91.00 /min Saida Mcqueen Respiratory Rate 2021-06-13 15:46:00 16.00 /min Benitez Mcqueen Procedures Procedure Date / Time Performed Performing Clinicia n Source [facility] 2023-11-20 08:22:49 Wolf Drew - External REFERRAL- REQUEST/RESPONSE 2021-06-27 05:01:00 Doctor Unassigned, [place] [facility] Encounters Start Date/Time End Date/Time Encounter Type Admission Type Attending [facility] Care Facility Care Department Encounter ID Source 2022-04-06 14:11:02 Outpatient Wolf Drew [facility] [id number] [facility] 2024-07-18 08:00:00 2024-07-18 08:00:00 Outpatient WOLF DREW [id number] Ramya Scott 2023 15:04:42 2023 15:04:42 Outpatient SFA SFA [id number] Benitez Mcqueen 2023 00:00:00 2023 00:00:00 Outpatient Visit SFA [id number] Benitez Ferguson Richar 2023-11-20 09:00:00 2023-11-20 09:00:00 Outpatient LAB90 RAMYA SPARKS [id number] Ramya Scott 2023-11-20 08:00:00 2023-11-20 08:00:00 Outpatient WOLF DREW [id number] Ramya Scott 2023-05-25 08:00:00 2023-05-25 08:00:00 Outpatient GÓMEZ YEUNG [id number] Ramya Scott 2023-05-21 08:25:00 2023-05-21 08:25:00 Outpatient LAB90 RAMYA SPARKS [id number] Ramya Scott 2023-05-18 10:30:00 2023-05-18 10:30:00 Outpatient PREZAS, WOLF SPARKS RAMYA [id number] Ramya Guzmankimberlyn 2023-05-09 08:00:00 2023-05-09 08:00:00 Outpatient PREZAS, WOLF SPARKS RAMYA [id number] Ramya Scott 2023-01-31 00:00:00 2023-01-31 00:00:00 Outpatient PREZAS, WOLF SPARKS [id number] Ramya Guzmankimberlyn 2023-01-29 08:00:00 2023-01-29 08:00:00 Outpatient PREZAS, WOLF SPARKS RAMYA [id number] Ramya Guzmankimberlyn 2023-01-12 08:45:00 2023-01-12 08:45:00 Outpatient PREZAS, WOLF SPARKS RAM[facility] [id number] [facility] 2023-01-09 16:00:00 2023-01-09 16:00:00 Outpatient PREZAS, WOLF SPARKS RAMYA [id number] [facility] 2022-11-07 00:00:00 2022-11-07 00:00:00 Outpatient PREZAS, WOLF SPARKS RAMYA [id number] Ramya [facility] 2022-11-06 11:15:00 2022-11-06 11:15:00 Outpatient ELVIE SPARKS RAMYA [id number] [facility] 2022-11-06 10:30:00 2022-11-06 10:30:00 Outpatient PREZAS, WOLF SPARKS RAMYA [id number] Ramya [facility] 2022-10-19 14:30:00 2022-10-19 14:30:00 Outpatient PREZAS, WOLF RAMYA SPAKRS [id number] Ramya [facility] 2022-10-12 10:45:00 2022-10-12 10:45:00 Outpatient PREZAS, WOLF RAMYA SPARKS [id number] [facility] 2022-06-01 00:00:00 2022-06-01 00:00:00 [id number] 2022-05-30 00:00:00 2022-05-30 00:00:00 Outpatient PREZAS, WOLF SPARKS RAMYA [id number] [facility] 2022-04-20 14:45:00 2022-04-20 14:45:00 Outpatient PREZASWOLF RAMYA [id number] [facility] 2022-04-11 00:00:00 2022-04-11 00:00:00 Outpatient PREZAS, WOLF RAMYA SPARKS [id number] [facility] 2022-04-10 00:00:00 2022-04-10 00:00:00 Outpatient PREZAS, WOLF RAMYA SPARKS [id number] Ramya [facility] 2022-04-06 00:00:00 2022-04-06 00:00:00 OFFICE VISIT NEW PT LEVEL 2 STLMLC STLMLC [id number] [facility] 2022-04-04 00:00:00 2022-04-04 00:00:00 Outpatient PREZASWOLF RAMYA RAMYA [id number] [facility] 2022-03-31 08:35:00 2022-03-31 08:35:00 Outpatient LAB90 RAMYA SPARKS [id number] Ramya [facility] 2022-03-31 08:00:00 2022-03-31 08:00:00 Outpatient PREZASWOFL RAMYA SPARKS [id number] Ramya [facility] 2021-12-27 09:45:00 2021-12-27 09:45:00 Outpatient PREZASWOLF RAMYA SPARKS [id number] Ram[facility] 2021-12-20 11:30:00 2021-12-20 11:30:00 Outpatient LAB90 RAMYA SPARKS [id number] Ramya [facility] 2021-12-20 10:30:00 2021-12-20 10:30:00 Outpatient PREZAS, WOLF RAMYA SPARKS [id number] Ramya [facility] 2021-12-19 00:00:00 2021-12-19 00:00:00 Outpatient ARBEN BAKER [id number] Ramya Scott 2021-12-13 10:00:00 2021-12-13 10:00:00 Outpatient WOLF DREW [id number] Ramya Scott 2021-09-08 14:30:00 2021-09-08 14:30:00 Outpatient SAMRA KENT [facility] [id number] [facility] 2021-06-27 00:00:00 2021-06-27 00:00:00 Orders Only Doctor Unassigned, [place] [facility] [id number] [facility] Results Test Description Test Time Test Comments Results Result Co mments Source Ramya Scott - [facility] W/AUTO DIFF WITH [id number] 02:41:03* Test Item Value Reference Range Interpretation Comme nts WBC (test code = 1001) 7.4 K/UL 3.5-11.0 RBC (test code = 1002) 4.63 M/UL 4.50-6.10 HEMOGLOBIN (test code = 1003) 13.5 G/DL 13.5-17.0 HEMATOCRIT (test code = 1004) 40.1 % 40.0-51.0 MCV (test code = 1005) 86.6 fL 80.0-99.0 MCH (test code = 1006) 29.2 PG 25.0-33.0 MCHC (test code = 1007) 33.7 G/DL 31.0-36.0 RDW (test code = 1038) 12.6 % 11.5-15.0 NEUTROPHILS (test code = 1008) 44.4 % LYMPHOCYTES (test code = 1010) 42.0 % MONOCYTES (test code = 1011) 8.5 % EOSINOPHILS (test code = 1012) 3.5 % BASOPHILS (test code = 1013) 1.3 % IMMATURE GRANULOCYTES (test code = 1036) 0.3 % NUCLEATED RBCS (test code = 1065) 0.0 /100 WBC'S See_Comment [Automated message] The system which generated this result transmitted reference range: 0.0. The reference range was not used to interpret this result as normal/abnormal. PLATELET COUNT (test code = 1015) 252 K/UL 130-400 ABSOLUTE NEUTROPHILS (test code = 1066) 3.29 K/UL 1.50-7.50 ABSOLUTE LYMPHOCYTES (test code = 1067) 3.11 K/UL 1.00-4.00 ABSOLUTE MONOCYTES (test code = 1068) 0.63 K/UL 0.20-1.00 ABSOLUTE EOSINOPHILS (test code = 1040) 0.26 K/UL 0.00-0.50 ABSOLUTE BASOPHILS (test code = 1069) 0.10 K/UL 0.00-0.20 ABS IMMATURE GRANULOCYTES (test code = 1020) 0.02 K/UL 0.00-0.10 ABS NUCLEATED RBCS (test code = 99146) 0.00 K/UL 0.00-0.11 UNLESS OTHER HU INDICATED, ALL TESTING PERFORMED [facility] [employer] [address] [place] [id number] [employer]: ANJEL RAMIREZ M.D. CLIA NUMBER [id number] [facility] [place]. [id number] CBC W/AUTO [id number] 00:00:00* Test Item Value Reference Range Interpretation Comme nts WBC (test code = 1001) 7.4 K/UL RBC (test code = 1002) 4.63 M/UL HEMOGLOBIN (test code = 1003) 13.5 G/DL HEMATOCRIT (test code = 1004) 40.1 % MCV (test code = 1005) 86.6 fL MCH (test code = 1006) 29.2 PG MCHC (test code = 1007) 33.7 G/DL RDW (test code = 1038) 12.6 % NEUTROPHILS (test code = 1008) 44.4 % LYMPHOCYTES (test code = 1010) 42.0 % MONOCYTES (test code = 1011) 8.5 % EOSINOPHILS (test code = 1012) 3.5 % BASOPHILS (test code = 1013) 1.3 % IMMATURE GRANULOCYTES (test code = 1036) 0.3 % NUCLEATED RBCS (test code = 1065) 0.0 /100WBC'S PLATELET COUNT (test code = 1015) 252 K/UL ABSOLUTE NEUTROPHILS (test c ode = 1066) 3.29 K/UL ABSOLUTE LYMPHOCYTES (test c ode = 1067) 3.11 K/UL ABSOLUTE MONOCYTES (test cod e = 1068) 0.63 K/UL ABSOLUTE EOSINOPHILS (test c ode = 1040) 0.26 K/UL ABSOLUTE BASOPHILS (test cod e = 1069) 0.10 K/UL ABS IMMATURE GRANULOCYTES (t est code = 1020) 0.02 K/UL ABS NUCLEATED RBCS (test cod e = 11563) 0.00 K/UL Benitez McqueenHIV 1/2 4TH GEN, RFLX [id number] 06:06:18* Test Item Value Reference Range Interpretation Comme nts HIV 1/2 4TH GEN, RFLX CONF ( test code = 3514) NON-REACTIVE NON-REACTIVE HEPATITIS PANEL, [id number] 06:06:18* Test Item Value Reference Range Interpretation Comme [facility] HEPATITIS A IgM (test code = 08746) NON-REACTIVE NON-REACTIVE HEPATITIS B CORE IgM (test code = 4644) NON-REACTIVE NON-REACTIVE HEPATITIS B SURF AG (test code = 2739) NON-REACTIVE NON-REACTIVE HEPATITIS C ANTIBODY (test code = 4675) NON-REACTIVE NON-REACTIVE INTERPRETATION HEPATITIS A: (test code = 2552) (NOTE) Hepatitis A serology shows no evidence of acute hepatitis A. INTERPRETATION HEPATITIS B: (test code = 58827) (NOTE) Hepatitis B serology shows no evidence of acute hepatitis B andno indication of exposure to hepatitis B virus in the previous tao eight months. INTERPRETATION HEPATITIS C: (test code = 29720) (NOTE) Hepatitis C serology shows no evidence of exposure to hepatitisC virus at this time. It can take up to 12 months after exposure tothe hepatitis C virus for antibodies to become detectable in the blood in certain patients. PSA, [id number] 06:05:56* Test Item Value Reference Range Interpretation Comme [facility] PSA, TOTAL (test code = 2606) 4.46 NG/ML See_Comment H NOTE: Methodolog y is Nadine Danette Electrochemiluminescence Immunoassay traceable to WHO reference standard 96/760. UNLESS OTHERWISE INDICATED, ALL TESTING PERFORMED [facility] [employer] [address] [place] [id number] [employer] AMBASSADOR: ANJEL RAMIREZ M.D. CLIA NUMBER [id number] [place]. [id number] [Automated message] The system which generated this result transmitted reference range: <=4.00. The reference range was not used to interpret this result as normal/abnormal. COMPREHENSIVE METABOLIC [id number] 04:26:01* Test Item Value Reference Range Interpretation Comme nts GLUCOSE (test code = 2216) 104 MG/DL 70-99 H BUN (test code = 2207) 10 MG/DL 8-23 CREATININE (test code = 2213) 0.88 MG/DL 0.80-1.40 eGFR (2020 CKD-EPI) (test code = ) 96 ML/MIN/1.73 >60 CALC BUN/CREAT (test code = 2234) 11 RATIO 6-28 SODIUM (test code = 2230) 140 MEQ/L 133-146 POTASSIUM (test code = 2227) 4.3 MEQ/L 3.5-5.4 CHLORIDE (test code = 2214) 103 MEQ/L 95-107 CARBON DIOXIDE (test code = 2205) 25 MEQ/L 19-31 CALCIUM (test code = 2208) 10.1 MG/DL 8.5-10.5 PROTEIN, TOTAL (test code = 2228) 7.1 G/DL 6.1-8.3 ALBUMIN (test code = 2200) 4.7 G/DL 3.5-5.2 CALC GLOBULIN (test code = 0) 2.4 G/DL 1.9-3.7 CALC A/G RATIO (test code = 2233) 2.0 RATIO 1.0-2.6 BILIRUBIN, TOTAL (test code = 2206) 0.6 MG/DL See_Comment [Automated me ssage] The system which generated this result transmitted reference range: <=1.2. The reference range was not used to interpret this result as normal/abnormal. ALKALINE PHOSPHATASE (test code = 2203) 87 U/L 40-123 AST (test code = 2217) 17 U/L 9-50 ALT (test code = 9) 23 U/L 5-50 LIPID [id number] 04:26:01* Test Item Value Reference Range Interpretation Comme nts CHOLESTEROL (test code = 0) 195 MG/DL <200 TRIGLYCERIDES (test code = 2232) 104 MG/DL <150 HDL CHOLESTEROL (test code = 2219) 50 MG/DL >39 CALC LDL CHOL (test code = 2236) 124 MG/DL <100 H NOTE: CALCULATED LDL IS BASED ON CRISTOPHER-CONNOR METHOD WHICHINCLUDES ADJUSTABLE TRIGLYCERIDE:VLDL CHOLESTEROL RATIO.THIS FACTOR VARIES BY MEASURED TRIGLYCERIDE AND NON-HDLCHOLESTEROL CONCENTRATIONS WITH INCREASED CALCULATED LDL SEENIN HIGHER TRIGLYCERIDE OR LOWER NON-HDL SPECIMENS. FOR MOREINFORMATION, SEE CLIENT ANNOUNCEMENT AT [email or web address] [email or web address] RATIO LDL/HDL (test code = 2238) 2.48 RATIO <3.55 CBC W/AUTO DIFF WITH [id number] 02:48:43* Test Item Value Reference Range Interpretation Comme nts WBC (test code = 1001) 12.3 K/UL 3.5-11.0 H RBC (test code = 1002) 4.74 M/UL 4.50-6.10 HEMOGLOBIN (test code = 1003) 14.4 G/DL 13.5-17.0 HEMATOCRIT (test code = 1004) 41.1 % 40.0-51.0 MCV (test code = 1005) 86.7 fL 80.0-99.0 MCH (test code = 1006) 30.4 PG 25.0-33.0 MCHC (test code = 1007) 35.0 G/DL 31.0-36.0 RDW (test code = 1038) 12.0 % 11.5-15.0 NEUTROPHILS (test code = 1008) 72.3 % LYMPHOCYTES (test code = 1010) 16.8 % MONOCYTES (test code = 1011) 8.4 % EOSINOPHILS (test code = 1012) 1.6 % BASOPHILS (test code = 1013) 0.6 % IMMATURE GRANULOCYTES (test code = 1036) 0.3 % NUCLEATED RBCS (test code = 1065) 0.0 /100 WBC'S See_Comment [Automated messa ge] The system which generated this result transmitted reference range: 0.0. The reference range was not used to interpret this result as normal/abnormal. PLATELET COUNT (test code = 1015) 263 K/UL 130-400 ABSOLUTE NEUTROPHILS (test code = 1066) 8.91 K/UL 1.50-7.50 H ABSOLUTE LYMPHOCYTES (test code = 1067) 2.07 K/UL 1.00-4.00 ABSOLUTE MONOCYTES (test code = 1068) 1.04 K/UL 0.20-1.00 H ABSOLUTE EOSINOPHILS (test code = 1040) 0.20 K/UL 0.00-0.50 ABSOLUTE BASOPHILS (test code = 1069) 0.08 K/UL 0.00-0.20 ABS IMMATURE GRANULOCYTES (test code = 1020) 0.04 K/UL 0.00-0.10 ABS NUCLEATED RBCS (test code = 34238) 0.00 K/UL 0.00-0.11 CBC W/AUTO [id number] 00:00:00* Test Item Value Reference Range Interpretation Comme nts WBC (test code = 1001) 12.3 K/UL RBC (test code = 1002) 4.74 M/UL HEMOGLOBIN (test code = 1003) 14.4 G/DL HEMATOCRIT (test code = 1004) 41.1 % MCV (test code = 1005) 86.7 fL MCH (test code = 1006) 30.4 PG MCHC (test code = 1007) 35.0 G/DL RDW (test code = 1038) 12.0 % NEUTROPHILS (test code = 1008) 72.3 % LYMPHOCYTES (test code = 1010) 16.8 % MONOCYTES (test code = 1011) 8.4 % EOSINOPHILS (test code = 1012) 1.6 % BASOPHILS (test code = 1013) 0.6 % IMMATURE GRANULOCYTES (test code = 1036) 0.3 % NUCLEATED RBCS (test code = 1065) 0.0 /100WBC'S PLATELET COUNT (test code = 1015) 263 K/UL ABSOLUTE NEUTROPHILS (test c ode = 1066) 8.91 K/UL ABSOLUTE LYMPHOCYTES (test c ode = 1067) 2.07 K/UL ABSOLUTE MONOCYTES (test cod e = 1068) 1.04 K/UL ABSOLUTE EOSINOPHILS (test c ode = 1040) 0.20 K/UL ABSOLUTE BASOPHILS (test cod e = 1069) 0.08 K/UL ABS IMMATURE GRANULOCYTES (t est code = 1020) 0.04 K/UL ABS NUCLEATED RBCS (test cod e = 52249) 0.00 K/UL Benitez Marty RicharCOMPREHENSIVE METABOLIC [id number] 00:00:00* Test Item Value Reference Range Interpretation Comme nts GLUCOSE (test code = 2217) 104 MG/DL BUN (test code = 2208) 10 MG/DL CREATININE (test code = 2214) 0.88 MG/DL eGFR (2020 CKD-EPI) (test co de = 73502) 96 ML/MIN/1.73 CALC BUN/CREAT (test code = 2235) 11 RATIO SODIUM (test code = 2231) 140 MEQ/L POTASSIUM (test code = 2228) 4.3 MEQ/L CHLORIDE (test code = 2215) 103 MEQ/L CARBON DIOXIDE (test code = 2206) 25 MEQ/L CALCIUM (test code = 2209) 10.1 MG/DL PROTEIN, TOTAL (test code = 2229) 7.1 G/DL ALBUMIN (test code = 2201) 4.7 G/DL CALC GLOBULIN (test code = 2240) 2.4 G/DL CALC A/G RATIO (test code = 2234) 2.0 RATIO BILIRUBIN, TOTAL (test code = 2207) 0.6 MG/DL ALKALINE PHOSPHATASE (test code = 2204) 87 U/L AST (test code = 2218) 17 U/L ALT (test code = 2219) 23 U/L Benitez McqueenLIPID [id number] 00:00:00* Test Item Value Reference Range Interpretation Comme nts CHOLESTEROL (test code = 2210) 195 MG/DL TRIGLYCERIDES (test code = 2232) 104 MG/DL HDL CHOLESTEROL (test code = 2220) 50 MG/DL CALC LDL CHOL (test code = 2237) 124 MG/DL RISK RATIO LDL/HDL (test cod e = 2238) 2.48 RATIO Benitez McqueenHIV AB/AG COMBO RFLX [id number] 00:00:00* Test Item Value Reference Range Interpretation Comme nts HIV 1/2 4TH GEN, RFLX CONF ( test code = 3514) NON-REACTIVE Benitez McqueenACUTE HEPATITIS [id number] 00:00:00* Test Item Value Reference Range Interpretation Comme nts HEPATITIS A IgM (test code = 78781) NON-REACTIVE HEPATITIS B CORE IgM (test c ode = 2333) NON-REACTIVE HEPATITIS B SURF AG (test co de = 2940) NON-REACTIVE HEPATITIS C ANTIBODY (test c ode = 4638) NON-REACTIVE INTERPRETATION HEPATITIS A: (test code = 2552) (NOTE) INTERPRETATION HEPATITIS B: (test code = 24363) (NOTE) INTERPRETATION HEPATITIS C: (test code = 90227) (NOTE) Benitez LeonA, [id number] 00:00:00* Test Item Value Reference Range Interpretation Comme nts PSA, TOTAL (test code = 2606) 4.46 NG/ML Benitez McqueenH. PYLORI (BREATH)2019-06-27 00:00:00* Test Item Value Reference Range Interpretation Comme nts H. PYLORI (BREATH) (test cod e = 94117) POSITIVE Benitez F Richar Notes Date/Time Note Provider Source Benitez FergusonRonaldo Richar [facility]2024-09-03 08:00:31 Chief Complaint Patient presents with Physical Linda Dowling MA II [facility]
[2024-05-03] MEDS ORDERED: CYCLOBENZAPRINE 10 MG TAB ONE (16:50)
[2024-05-03] MEDS ORDERED: KETOROLAC 30 MG/ML INJ ONE (16:50)
--- NOTE | 2024-05-03 17:45 | RAD REPORT ---
EXAMINATION: XR RIGHT SHOUDLER CLINICAL INDICATION: Male, 68 years old. PAIN RIGHT TECHNIQUE: Multiple views of the right shoulder were obtained. COMPARISON: No prior exam. 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 No acute fracture or di slocation. No aggressive marrow lesion.
--- NOTE | 2024-05-03 17:47 | EDPHYS ---
Physician Documentation [facility] Name: Ty Renae Age: 68 yrs Sex: Male : 1955 Arrival Date: 05/03/2024 Time: 16:11 Bed 14 Private MD: ED Physician Mason Tabares HPI: 05/03 17:00 This 68 yrs old Male presents to ER via Ambulatory with complaints of Shoulder kb Injury - right. 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 Denies any other pain/injury. Historical: - Allergies: 16:26 No Known Allergies; aa5 - PMHx: 16:26 None; aa5 - Immunization history:: Adult Immunizations unknown. - Infectious Disease History:: Denies. - Social history:: Smoking status: Patient denies any tobacco usage or history of. ROS: 16:59 Constitutional: As per HPI kb Exam: 16:59 Constitutional: This is a well developed, well nourished patient who is awake, alert, kb and in no acute distress. Head/Face: Normocephalic, atraumatic. ENT: Moist Mucous membranes Cardiovascular: Regular rate Respiratory: Respirations even and unlabored. No increased work of breathing. Talking in full sentences Skin: Warm, dry with normal turgor. Normal color. Neuro: Awake and alert, GCS 15, oriented to person, place, time, and situation. 16:59 Musculoskeletal/extremity: Extremities: grossly normal except: noted in the anterior aspect of right shoulder: pain, tenderness, ROM: limited active range of motion due to pain, Circulation is intact in all extremities. Sensation intact. Vital Signs: 16:24 BP 151 / 77; Pulse 72; Resp 18 S; Temp 97.8(TE); Pulse Ox 99% on R/A; Weight 90.72 kg aa5 (R); Height 5 ft. 9 in. (R); 17:00 BP 151 / 77; Pulse 72; Resp 16; Temp 98.4; Pulse Ox 98% ; me1 17:57 BP 131 / 64; Pulse 66; Resp 16; Temp 98.1(O); Pulse Ox 98% ; me1 17:58 Pain 3/10; me1 17:58 Pain 3/10; me1 16:24 Body Mass Index 29.53 (90.72 kg, 175.26 cm) aa5 17:58 Pain Scale: Adult me1 17:58 Pain Scale: Adult me1 MDM: 16:16 Medical Screening Exam initiated kb 17:01 Differential diagnosis: strain, fracture. Data reviewed: vital signs, nurses notes. kb Counseling: I had a detailed discussion with the patient and/or guardian regarding the historical points, exam findings, and any diagnostic results supporting the discharge/admit diagnosis, radiology results, the need for outpatient follow up, a orthopedic surgeon, to return to the emergency department if symptoms worsen or persist or if there are any questions or concerns that arise at home. 05/03 16:28 Order name: Shoulder Right (2 View) XRAY; Complete Time: 17:47 kb Administered Medications: 16:58 Drug: Ketorolac IM 30 mg IM once Route: IM; Site: left deltoid; me1 17:58 Follow up: Pain 3/10 Adult; Response: No adverse reaction; Pain is decreased me1 16:58 Drug: Cyclobenzaprine PO 10 mg PO once Route: PO; me1 17:58 Follow up: Pain 3/10 Adult; Response: No adverse reaction; Pain is decreased me1 Disposition Summary: 05/03/24 17:47 Discharge Ordered Notes: Location: Home Condition: Stable kb Diagnosis - Pain in right shoulder kb Followup: kb - With: Emergency Department - When: As needed - Reason: Worsening of condition Followup: kb - With: Private Physician - When: 2 - 3 days - Reason: Recheck today's complaints, Continuance of care, Re-evaluation by your physician Discharge Instructions: - Discharge Summary Sheet kb - Shoulder Pain, [id number] kb Forms: - Medication Reconciliation Form kb - Antibiotic Education kb - Prescription Opioid Use kb - Patient Portal Instructions kb - Leadership Thank You Letter Prescriptions: - Diclofenac Sodium 75 mg Oral tablet, delayed release (enteric coated) - take 1 tablet ORAL route 2 times per day As needed; 30 tablet; Refills: 0, kb Product Selection Permitted - orphenadrine citrate 100 mg Oral Tablet Sustained Release - take 1 tablet ORAL route 2 times per day As needed; 20 tablet; Refills: 0, kb Product Selection Permitted Signatures: Dispatcher [employer] Gayle Ding, NETWORK OPERATIONS ANALYST-C NETWORK OPERATIONS ANALYST-Ckb Reina New, RN RN aa5 Lisseth Salcedo, RN RN me1
--- NOTE | 2024-05-03 17:47 | ER ---
Nurse's Notes [facility] Name: Ty Renae Age: 68 yrs Sex: Male : 1955 Arrival Date: 05/03/2024 Time: 16:11 Bed 14 Private MD: Diagnosis: Pain in right shoulder Presentation: 05/03 16:24 Chief complaint: Patient states: "I was working on my car and I tried to removed the aa5 tire and hurt my right shoulder". Coronavirus screen: At this time, the client does not indicate any symptoms associated with coronavirus-19. Ebola Screen: Patient denies travel to an Ebola-affected area in the 21 days before illness onset. Initial Sepsis Screen: Does the patient meet any 2 criteria? No. Patient's initial sepsis screen is negative. Does the patient have a suspected source of infection? No. Patient's initial sepsis screen is negative. Risk Assessment: Do you want to hurt yourself or someone else? Patient reports no desire to harm self or others. Onset of symptoms was May 03, 2024. 16:24 Method Of Arrival: Ambulatory aa5 16:24 Acuity: JESSICA 4 aa5 Historical: - Allergies: 16:26 No Known Allergies; aa5 - PMHx: 16:26 None; aa5 - Immunization history:: Adult Immunizations unknown. - Infectious Disease History:: Denies. - Social history:: Smoking status: Patient denies any tobacco usage or history of. Screenin:09 [facility] ED Fall Risk Assessment (Adult) History of falling in the last 3 months, me1 including since admission No falls in past 3 months (0 pts) Confusion or Disorientation No (0 pts) Intoxicated or Sedated No (0 pts) Impaired Gait No (0 pts) Mobility Assist Device Used No (0 pt) Altered Elimination No (0 pt) Score/Fall Risk Level 0 - 2 = Low Risk Maintained a safe environment, Provided non-skid footwear, Hourly rounding (assess needs \\T\\ fall precautionary measures) done. Abuse screen: Denies threats or abuse. Nutritional screening: No deficits noted. Tuberculosis screening: No symptoms or risk factors identified. Assessment: 17:09 General: Appears uncomfortable, well groomed, well developed, well nourished, Behavior me1 is calm, cooperative, appropriate for age, Reports "I was working on my car and I tried to removed the tire and hurt my right shoulder". Pain: Complains of pain in right arm and anterior aspect of right shoulder Pain does not radiate. Pain currently is 7 out of 10 on a pain scale. Quality of pain is described as sharp, Pain began suddenly, Is continuous. Neuro: Level of Consciousness is awake, alert, obeys commands, Oriented to person, place, time, situation, Appropriate for age. Cardiovascular: Patient's skin is warm and dry. Respiratory: Airway is patent Respiratory effort is even, unlabored, Respiratory pattern is regular, symmetrical. GI: No signs and/or symptoms were reported involving the gastrointestinal system. : No signs and/or symptoms were reported regarding the genitourinary system. EENT: No signs and/or symptoms were reported regarding the EENT system. Derm: Skin is intact, is healthy with good turgor, Skin is pink, warm \\T\\ dry. Musculoskeletal: Reports pain in anterior aspect of right shoulder. Injury Description: "I was working on my car and I tried to removed the tire and hurt my right shoulder". Vital Signs: 16:24 BP 151 / 77; Pulse 72; Resp 18 S; Temp 97.8(TE); Pulse Ox 99% on R/A; Weight 90.72 kg aa5 (R); Height 5 ft. 9 in. (R); 17:00 BP 151 / 77; Pulse 72; Resp 16; Temp 98.4; Pulse Ox 98% ; me1 17:57 BP 131 / 64; Pulse 66; Resp 16; Temp 98.1(O); Pulse Ox 98% ; me1 17:58 Pain 3/10; me1 17:58 Pain 3/10; me1 16:24 Body Mass Index 29.53 (90.72 kg, 175.26 cm) aa5 17:58 Pain Scale: Adult me1 17:58 Pain Scale: Adult me1 ED Course: 16:14 Patient arrived in ED. im 16:15 Gayle Narvaez FNP-C is PHCP. kb 16:15 Mason Tabares MD is Attending Physician. kb 16:24 Arm band placed on Patient placed in an exam room, on a stretcher. aa5 16:26 Triage completed. aa5 16:28 Lisseth Salcedo, RN is Primary Nurse. me1 17:09 Patient has correct armband on for positive identification. Bed in low position. Call me1 light in reach. Side rails up X 1. Provided Education on: POC. Verbalized understanding.. Client placed on continuous cardiac and pulse oximetry monitoring. NIBP monitoring applied. Pulse ox on. NIBP on. 17:09 No provider procedures requiring assistance completed. Patient did not have IV access me1 during this emergency room visit. 17:32 Shoulder Right (2 View) XRAY In Process Unspecified. EDMS Administered Medications: 16:58 Drug: Ketorolac IM 30 mg IM once Route: IM; Site: left deltoid; me1 17:58 Follow up: Pain 3/10 Adult; Response: No adverse reaction; Pain is decreased me1 16:58 Drug: Cyclobenzaprine PO 10 mg PO once Route: PO; me1 17:58 Follow up: Pain 3/10 Adult; Response: No adverse reaction; Pain is decreased me1 Medication: 17:09 VIS not applicable for this client. me1 Outcome: 17:47 Discharge ordered by . clemente 18:01 Discharged to home ambulatory, me1 18:01 Condition: stable 18:01 Discharge instructions given to patient, Instructed on discharge instructions, follow up and referral plans. medication usage, Demonstrated understanding of instructions, follow-up care, medications, Prescriptions given X 2, 18:01 Patient left the ED. me1 Signatures: Dispatcher [employer] EDMS Gayle Narvaez, DESIRAE-C DESIRAE-Reina Lundberg RN RN aa5 Saumya Shoemaker Lisseth Salcedo, RN RN me1 Corrections: (The following items were deleted from the chart) 17:09 16:24 Chief complaint: Patient states: "I was working on my car and I tried to removed me1 the tire and hurt my right shoulder" aa5
[2024-05-03 18:13] VITALS: O2SAT 98
[2024-05-03 18:14] VITALS: BP 131/64; TEMP 98.1
== END 2024-05-03 18:01 | disposition home or self-care (01) ==
LOC: ER 16:11
DX: M25.511 Pain in right shoulder (principal)
CPT/HCPCS: 96372; 99284